=== PATIENT | female | born 1950 | race Caucasian/White ===

== ENCOUNTER 2020-08-19 17:39 | Emergency (ER) | payer MEDICARE, OTHER, SELFPAY ==
[2020-08-19 17:40] VITALS: BP 146/100; PULSE 90; RESP 28; TEMP 37.2; O2SAT 98; BMI 25.6
--- NOTE | 2020-08-19 17:43 | HMH.EDGENADL ---
ED Disposition Clinical Impression: Volume overload Qualifiers: Hypervolemia type: unspecified Qualified Code(s): E87.70 - Fluid overload, unspecified Disposition: Home, Self-Care Condition on Discharge: Good Additional Instructions: Report to dialysis tomorrow morning as scheduled for dialysis. I do believe some of your acute on chronic dyspnea is related to fluid overload. Use Combivent inhaler as instructed. Return immediately if any difficulty going to dialysis tomorrow morning, worsening shortness of breath, fever/chills, cough, other new concerning symptoms. Referrals: Fernando Shine MD [Primary Care Provider] - - Critical Care Critical Care Time: No Attestation: On , the high probability of a clinically significant, sudden or life threatening deterioration of the following system(s) required my full and direct attention, intervention and personal management. The time I documented below is in addition to time spent performing reported procedures but includes the following listed in this critical care notation. Medical Decision Making - Medical Records Medical records reviewed: Yes: I reviewed the patient's medical records. - Brian Inquiry Pt receiving controlled substance: No Vital Signs: 08/19/20 17:40 08/19/20 18:01 08/19/20 18:30 Temperature 99 F Temperature Source Oral Pulse Rate 83 81 Pulse Rate [Radial] 90 Respiratory Rate 28 H Blood Pressure 182/75 H 208/98 H Blood Pressure [Right Arm] 146/100 H Blood Pressure Mean 110 112 Blood Pressure Mean [Right Arm] 115 Blood Pressure Position [Right Arm] Sitting 02 Sat by Pulse Oximetry 98 94 L 96 Oxygen Delivery Method Room Air - Lab Data Lab Results 08/19/20 18:11: WBC 10.2, RBC 2.97 L, Hgb 9.8 L, Hct 30.4 L, MCV 102.2 H, MCH 33.0 H, MCHC 32.2, RDW 19.0 H, Plt Count 168, MPV 7.8, Neut % (Auto) 77.6, Lymph % (Auto) 11.6, [place] % (Auto) 2.5, Eos % (Auto) 7.9, Baso % (Auto) 0.4, Neut # (Auto) 7.9 H, Lymph # (Auto) 1.2, [place] # (Auto) 0.3, Eos # (Auto) 0.8 H, Baso # (Auto) 0.0 08/19/20 18:11: Sodium 137, Potassium 4.8, Chloride 99, Carbon Dioxide 29, Anion Gap 13.8, BUN 42 H, Creatinine 5.30 H, Estimated Creat Clear 10, Estimated GFR 8 L*, Est GFR ( Amer) 10 L*, Glucose 129 H, Calcium 8.9, Total Bilirubin 0.5, AST 22, ALT 8 L, Alkaline Phosphatase 172 H, Troponin I < 0.01, Total Protein 6.9, Albumin 3.9, Globulin 3.0, Albumin/Globulin Ratio 1.3 Result diagrams: 08/19/20 18:11 08/19/20 18:11 Orders (Tests/Meds): ORDERS Category Date Time Status XR chest portable Stat Exams 08/19/20 17:52 Taken Full Resp Panel w/COVID ([facility]) Routine Lab 08/19/20 17:52 Ordered Troponin I Q3H Lab 08/19/20 21:00 Ordered Troponin I Q3H Lab 08/20/20 00:00 Ordered - ECG Data Tracing #1 I reviewed this ECG and interpreted as documented below: EKG demonstrates normal sinus rhythm at a rate of 78 bpm; no acute ST elevation/depression; left axis deviation Medical Decision Narrative: Patient presents with acute on chronic dyspnea. On arrival, she was mildly tachypneic which is since resolved. On room air she is 98% without any increased work of breathing she does have some mild end expiratory wheezing with left crackles. Differential diagnosis does include COPD exacerbation versus volume overload secondary to renal disease versus pneumonia versus anemia. At this time, basic lab work will be obtained as well as x-ray and cardiac work-up to ensure no cardiac ischemia. EKG demonstrates no acute ischemia and troponin within normal limits. Lab work unremarkable and metabolic panel demonstrates patient's chronic renal disease without other findings. Chest x-ray demonstrates left-sided pleural effusion consistent with volume overload. I do believe patient's acute on chronic dyspnea without hypoxia is secondary to volume overload with underlying lung disease. Combivent inhaler has been given as patient states she is almost
--- NOTE | 2020-08-19 17:52 | XR_ITS ---
PROCEDURE: XR CHEST PORTABLE CLINICAL HISTORY: SOB COMPARISON: No exams were available for comparison FINDINGS: There is moderate left effusion with adjacent subsegmental consolidation. Minor right basal atelectasis is noted. Cardiac margins are partially obscured by the presence of the left sided pleural effusion. Visualized osseous structures are unremarkable. IMPRESSION: Moderate-sized left effusion with adjacent subsegmental consolidation. Close follow-up with radiographs is recommended after appropriate therapy to evaluate for resolution. Dictated by: Britt Farris 08/20/2020 09:16 Britt Farris in OV 08/20/2020 09:16
[2020-08-19 18:01] VITALS: BP 182/75; PULSE 83; O2SAT 94
--- NOTE | 2020-08-19 18:02 | ECG_ITS ---
APPROVED REPORT Exam: Resting ECG HR:78 bpm ECG Measurements Heart Rate 78 AXES NH 136 P 17 QRSd 76 QRS -36 QT 410 T 93 QTc 467 Conclusion Normal sinus rhythm Left axis deviation Low voltage QRS Abnormal QRS-T angle, consider primary T wave abnormality Abnormal ECG Electronically signed by : Clayton Thacker, 08/21/2020 13:24:03
[2020-08-19 18:25] LABS: Basophils % 0.4 % (0.1-2.0); Chloride 99 mmol/L (98-107); Eosinophils # 0.8 K/mm3 (0.0-0.4); Eosinophils % 7.9 % (0.1-12.0); Hematocrit 30.4 % (37.0-47.0); Hemoglobin 9.8 g/dL (12.2-16.2); Lymphocytes # 1.2 K/mm3 (0.7-4.5); Lymphocytes % 11.6 % (10-50); Mean Corpuscular HGB Conc 32.2 g/dL (31.8-35.4); Mean Corpuscular Volume 102.2 fl (81-99); Mean Platelet Volume 7.8 fl (7.4-10.4); Monocytes # 0.3 K/mm3 (0.1-1.0); Monocytes % 2.5 % (1.7-9.3); Neutrophils # 7.9 K/mm3 (1.8-7.8); Neutrophils % 77.6 % (37.0-80.0); Platelet Count 168 K/mm3 (142-424); Red Blood Count 2.97 M/mm3 (4.20-5.40); Sodium 137 mmol/L (136-145); White Blood Count 10.2 K/mm3 (4.8-10.8)
[2020-08-19 18:26] LABS: Potassium 4.8 mmoL/L (3.5-5.1)
[2020-08-19 18:28] LABS: Alanine Aminotransferase 8 U/L (12-78); Albumin Level 3.9 g/dl (3.5-5.0); Albumin/Globulin Ratio 1.3 (1.1-1.8); Alkaline Phosphatase 172 U/L (38-126); Anion Gap 13.8 mEq/L (5-15); Aspartate Amino Transferase 22 U/L (14-36); Bilirubin,Total 0.5 mg/dl (0.2-1.3); Blood Urea Nitrogen 42 mg/dl (7-17); Carbon Dioxide 29 mmol/L (22.0-30.0); Creatinine Clearance Estimated 10 mL/min (50-200); Estimated Glomerular Filt Rate 8 ml/min (>60); GFR (African American) 10 ML/MIN (>60); Total Protein,Serum 6.9 g/dl (6.3-8.2)
[2020-08-19 18:29] LABS: Calcium 8.9 mg/dl (8.4-10.2); Glucose 129 mg/dl (74-100)
[2020-08-19 18:30] VITALS: BP 208/98; PULSE 81; O2SAT 96
[2020-08-19 18:41] LABS: Troponin I < 0.01 ng/ml (0.00-0.034)
[2020-08-19 19:42] VITALS: BP 145/98; PULSE 93; RESP 19; TEMP 37.2; O2SAT 97
== END 2020-08-19 19:45 | disposition home or self-care (01) ==
PROVIDERS: Emergency Provider Emergency Medicine
DX: E87.70 Fluid overload, unspecified (principal); J44.9 Chronic obstructive pulmonary disease, unspecified; N18.6 End stage renal disease; Z99.2 Dependence on renal dialysis; Z88.2 Allergy status to sulfonamides; Z79.899 Other long term (current) drug therapy
CPT/HCPCS: 71045; 80053; 84484; 85025; 93005; 99282

== ENCOUNTER 2021-02-22 19:06 | Emergency (ER) | payer MEDICARE, OTHER, SELFPAY ==
[2021-02-22 19:01] VITALS: BP 197/97; PULSE 113; RESP 26; TEMP 36.4; O2SAT 88; BMI 24.0
--- NOTE | 2021-02-22 19:06 | XR_ITS ---
PROCEDURE INFORMATION: Exam: XR Chest Exam date and time: 02/22/2021 7:06 PM Age: 70 years old Clinical indication: Chest pressure; Patient HX: Chest pain SOA TECHNIQUE: Imaging protocol: XR of the chest. Views: 1 view. COMPARISON: CR XR CHEST PORTABLE 08/19/2020 6:17 PM FINDINGS: Lungs: Left basilar opacities silhouette the diaphragm are favored to represent combination of atelectasis/pleural effusion/consolidation. Findings worse compared to prior exam. Pleural spaces: See Lungs finding. Heart/Mediastinum: Unremarkable. No cardiomegaly. Vasculature: Left upper extremity vascular stenting unchanged in position. Bones/joints: Unremarkable. IMPRESSION: Left basilar opacities silhouette the diaphragm are favored to represent combination of atelectasis/pleural effusion/consolidation. Findings worse compared to prior exam.
[2021-02-22 19:17] LABS: Basophils % 0.2 % (0.1-2.0); Eosinophils % 0.2 % (0.1-12.0); Hematocrit 40.3 % (37.0-47.0); Hemoglobin 11.8 g/dL (12.2-16.2); Lymphocytes # 0.3 K/mm3 (0.7-4.5); Lymphocytes % 4.6 % (10-50); Mean Corpuscular HGB Conc 29.3 g/dL (31.8-35.4); Mean Corpuscular Hemoglobin 30.9 pg (27.0-31.2); Mean Corpuscular Volume 105.6 fl (81-99); Mean Platelet Volume 9.4 fl (7.4-10.4); Monocytes # 0.3 K/mm3 (0.1-1.0); Monocytes % 4.8 % (1.7-9.3); Neutrophils # 5.8 K/mm3 (1.8-7.8); Neutrophils % 90.2 % (37.0-80.0); Platelet Count 227 K/mm3 (142-424); Red Blood Count 3.81 M/mm3 (4.20-5.40); Red Cell Distribution Width 19.6 % (11.5-17.5); White Blood Count 6.4 K/mm3 (4.8-10.8)
[2021-02-22 19:24] LABS: MANUAL DIFFERENTIAL MANUAL DIFFERENTIAL (MANUAL DIFF)
[2021-02-22 19:31] LABS: Alanine Aminotransferase 16 U/L (12-78); Albumin Level 3.7 g/dl (3.5-5.0); Albumin/Globulin Ratio 1.1 (1.1-1.8); Alkaline Phosphatase 186 U/L (38-126); Anion Gap 19.7 mEq/L (5-15); Aspartate Amino Transferase 26 U/L (14-36); Bilirubin,Total 0.4 mg/dl (0.2-1.3); Blood Urea Nitrogen 44 mg/dl (7-17); Calcium 8.7 mg/dl (8.4-10.2); Carbon Dioxide 22 mmol/L (22.0-30.0); Chloride 89 mmol/L (98-107); Creatinine Clearance Estimated 9 mL/min (50-200); Estimated Glomerular Filt Rate 8 ml/min (>60); GFR (African American) 9 ML/MIN (>60); Globulin 3.3 g/dL (1.3-3.2); Potassium 5.7 mmoL/L (3.5-5.1); Sodium 125 mmol/L (136-145)
[2021-02-22 19:33] LABS: ABG Base Excess -3.3 mmol/L (-2.4-2.3); ABG HCO3 22.5 mmhg (22.0-26.0); ABG Oxygen Saturation 87 % (90-100); ABG PCO2 42.5 mmhg (35.0-45.0); ABG PH 7.34 mmol/L (7.35-7.45); ABG TCO2 23.8 mmhg (23-27)
[2021-02-22 19:38] LABS: Allen's Test ACCEPTABLE; Oxygen 2 LPM %; Source Left Radial
--- NOTE | 2021-02-22 19:38 | ECG_ITS ---
APPROVED REPORT Exam: Resting ECG HR:105 bpm ECG Measurements Heart Rate 105 AXES WI 128 P 11 QRSd 80 QRS -43 QT 348 T 108 QTc 459 Conclusion Sinus tachycardia Left axis deviation Low voltage QRS late r wave progression Abnormal ECG Electronically signed by : Clayton Thacker MD 02/23/2021 09:17:28
[2021-02-22 19:41] LABS: Glucose 644 mg/dl (74-100); Lymphocytes % 4 % (10-50); Neutrophils % 91 % (42-76); Total Cells Counted 100
[2021-02-22 19:42] LABS: Anisocytosis 2+; Hypochromasia 3+; Macrocytosis 2+; Platelet Estimate Normal
[2021-02-22 19:48] LABS: Procalcitonin 0.581 ng/mL (0.0-2.0)
[2021-02-22 19:54] LABS: Troponin I 0.01 ng/ml (0.00-0.034)
[2021-02-22 20:04] LABS: Erythrocyte Sedimentation Rate 57 mm/hr (0-30)
--- NOTE | 2021-02-22 21:08 | HMH.EDSOB ---
ED Disposition Clinical Impression: Acute exacerbation of chronic obstructive airways disease, COPD with hypoxia, ESRD (end stage renal disease) on dialysis, Hyperkalemia Congestive heart failure Qualifiers: Heart failure type: unspecified Heart failure chronicity: acute on chronic Qualified Code(s): I50.9 - Heart failure, unspecified Diabetes Qualifiers: Diabetes mellitus type: type 2 Diabetes mellitus intermediate frame tender insulin use: unspecified fpc insulin use status Diabetes mellitus complication status: with other specified complication Qualified Code(s): E11.69 - Type 2 diabetes mellitus with other specified complication Disposition: Home, Self-Care Condition on Discharge: Good Instructions: DI for Chronic Obstructive Pulmonary Disease Additional Instructions: call pcp/pul and card on wednesday and recheck if needed Referrals: Provider,Referral, MD [Primary Care Provider] - - Critical Care Critical Care Time: No Attestation: On 02/22/21, the high probability of a clinically significant, sudden or life threatening deterioration of the following system(s) required my full and direct attention, intervention and personal management. The time I documented below is in addition to time spent performing reported procedures but includes the following listed in this critical care notation. Medical Decision Making - Medical Records Medical records reviewed: Yes: I reviewed the patient's medical records. - Brian Inquiry Pt receiving controlled substance: No Vital Signs: 02/22/21 19:01 02/22/21 21:46 Temperature 97.5 F L Temperature Source Oral Pulse Rate 100 H Pulse Rate [Right] 113 H Respiratory Rate 26 H Blood Pressure [Right Arm] 197/97 H Blood Pressure Mean [Right Arm] 130 02 Sat by Pulse Oximetry 88 L Oxygen Delivery Method Room Air - Lab Data Lab results reviewed: Yes: I reviewed the patient's lab results. Lab Results 02/22/21 19:00: WBC 6.4, RBC 3.81 L, Hgb 11.8 L, Hct 40.3, MCV 105.6 H, MCH 30.9, MCHC 29.3 L, RDW 19.6 H, Plt Count 227, MPV 9.4, Neut % (Auto) 90.2 H, Lymph % (Auto) 4.6 L, [place] % (Auto) 4.8, Eos % (Auto) 0.2, Baso % (Auto) 0.2, Neut # (Auto) 5.8, Lymph # (Auto) 0.3 L, [place] # (Auto) 0.3, Eos # (Auto) 0.0, Baso # (Auto) 0.0, Total Counted 100, Neutrophils % (Manual) 91 H, Band Neutrophils % 5.0, Lymphocytes % (Manual) 4 L, Platelet Estimate Normal, Hypochromasia 3+, Anisocytosis 2+, Macrocytosis 2+, ESR 57 H 02/22/21 19:00: Sodium 125 L, Potassium 5.7 H, Chloride 89 L, Carbon Dioxide 22, Anion Gap 19.7 H, BUN 44 H, Creatinine 5.40 H, Estimated Creat Clear 9, Estimated GFR 8 L*, Est GFR ( Amer) 9 L*, Glucose 644 H*, Calcium 8.7, Total Bilirubin 0.4, AST 26, ALT 16, Alkaline Phosphatase 186 H, Total Protein 7.0, Albumin 3.7, Globulin 3.3 H, Albumin/Globulin Ratio 1.1, Procalcitonin 0.581 02/22/21 19:00: Troponin I 0.01 02/22/21 19:00: Acetone Level None detected 02/22/21 19:06: Specimen Source Left radial, O2 % 2 lpm, ABG pH 7.34 L, ABG pCO2 42.5, ABG pO2 56.0 L, ABG HCO3 22.5, ABG Total CO2 23.8, ABG O2 Saturation 87 L*, ABG Base Excess -3.3 L, Sacha Test Acceptable Result diagrams: 02/22/21 19:00 02/22/21 19:00 Orders (Tests/Meds): ED MEDICATIONS Discontinued Medications Generic Name Dose Route Start Last Admin Trade Name Cliff PRN Reason Stop Dose Admin Albuterol/Ipratropium 3 ml 02/22/21 21:38 02/22/21 21:45 Ipratropium/Albuterol 3 Ml Neb IH 02/22/21 21:39 3 ml ONCE ONE Administration Insulin Human Regular 5 unit 02/22/21 21:38 02/22/21 21:43 Insulin Human Regular 100 Units/Ml 10ml Vial IVP 02/22/21 21:39 5 unit ONCE ONE Administration Methylprednisolone Sodium Succinate 125 mg 02/22/21 20:22 02/22/21 20:28 Methylprednisolone Sod Succ 125mg Vial IV 02/22/21 20:23 125 mg ONCE ONE Administration Sodium Polystyrene Sulfonate 15 gm 10/02/21 21:38 02/22/21 21:44 Sodium Poly Sulfon 15gm/60ml Oral.Susp PO 02/22/21 21:39 15 gm
[2021-02-22 21:14] LABS: Acetone, Serum (Rapid) None Detected (None Detect)
--- NOTE | 2021-02-22 21:26 | PC.NURSE ---
[facility] on the phone with charge nurse re: setting up O2 at home for patient
[2021-02-22 21:46] VITALS: PULSE 100; PULSE 103
--- NOTE | 2021-02-22 22:14 | PC.NURSE ---
josue @ bedside reviewing O2 orders
[2021-02-22 22:25] VITALS: BP 179/87; PULSE 90; RESP 22; TEMP 36.4; O2SAT 94
== END 2021-02-22 22:27 | disposition home or self-care (01) ==
PROVIDERS: Emergency Medicine; Emergency Provider Emergency Medicine
DX: J44.1 Chronic obstructive pulmonary disease with (acute) exacerbation (principal); I50.9 Heart failure, unspecified; E87.5 Hyperkalemia; N18.6 End stage renal disease; Z99.2 Dependence on renal dialysis; F17.210 Nicotine dependence, cigarettes, uncomplicated
CPT/HCPCS: 71045; 80053; 82009; 82803; 84145; 84484; 85007; 85025; 85651; 93005; 96374; 96375; 99284